=== PATIENT | male | born 1960 | race Caucasian/White ===

== ENCOUNTER 2017-01-08 10:30 | Emergency (ER) | payer OTHER ==
--- NOTE | 2017-01-08 12:40 | EDPHY ---
H & P Stated Complaint: flew in from [facility] last week n/v/d since Time Seen by Provider: 01/08/17 10:50 - Personal History Current Tetanus/Diphtheria Vaccine: Yes - Medical/Surgical History Hx Asthma: No Hx Chronic Respiratory Disease: No Hx Diabetes: No Hx Cardiac Disease: No Hx Renal Disease: No Hx Cirrhosis: No Hx Alcoholism: No Hx HIV/AIDS: No Hx Splenectomy or Spleen Trauma: No Other PMH: gout/ - Social History Smoking Status: Never smoked Constitutional: Initial Vital Signs Temperature (C) 36.5 C 01/08/17 10:37 Heart Rate 70 01/08/17 10:37 Respiratory Rate 17 01/08/17 10:37 Blood Pressure 130/79 H 01/08/17 10:37 O2 Sat (%) 96 01/08/17 10:37 O2 Delivery Mode Room Air Allergies/Adverse Reactions: No Known Allergies Allergy (Unverified 01/08/17 10:37) Home Medications: Medication Instructions Recorded Allopurinol 01/08/17 Crestor 01/08/17 Medical Decision Making ED Course/Re-evaluation: CHIEF COMPLAINT: Diarrhea HISTORY OF PRESENT ILLNESS: 56-year-old healthy gentleman presenting from [facility]. He visits here every 6-8 weeks. Upon his arrival on Monday evening from [facility] he developed diarrhea he has had severe diarrhea going every hour to since then. He denies any fevers or chills. He denies any nausea vomiting. He has been able to eat or drink but whenever he eats or drinks he goes to the bathroom within 30 minutes. He has not been on any antibiotics recently. Patient is accompanied here by his family no on else is ill REVIEW OF SYSTEMS: A 10 point review of systems was performed and is negative with the exception of the elements mentioned in the history of present illness. PHYSICAL EXAM: HR, BP, O2 Sat, RR. Temp noted General Appearance: Alert, well hydrated, appropriate, and non-toxic appearing. Head: Atraumatic without scalp tenderness or obvious injury Eyes: Pupils equal, round, reactive to light and accommodation, EOMI, no trauma , no injection. Ears: Clear bilaterally, no perforation, normal landmarks Nose: Atraumatic, no rhinorrhea, clear. Throat: There is no erythema or exudates, no lesions, normal tonsils, mucus membranes moist. Neck: Supple, 2+ carotid upstroke, nontender, no lymphadenopathy. Respiratory: No retractions, no distress, no wheezes, and no accessory muscle use. Lungs are clear to auscultation bilaterally. Cardiovascular: Regular rate and rhythm, no murmurs, rubs, or gallops. Bilateral carotid, radial, dorsalis pedis, and posterior tibial pulses intact. Good capillary refill all extremities. Gastrointestinal: Abdomen is soft, nontender, non-distended, no masses, no rebound, no guarding, no peritoneal signs. Musculoskeletal: Normal active ROM of all extremities, atraumatic. Neurological: Alert, appropriate, and interactive. The patient has normal DTRs and non-focal cranial nerves, motor, sensory, and cerebellar exam. Skin: No rashes, good turgor, no nodules on palpation. Past medical history: Patient denies Past surgical history: Patient denies Family history: Noncontributory Social history:Lives in [facility], visits here every 6-8 weeks, denies tobacco drug or alcohol abuse DIAGNOSTICS/PROCEDURES/CRITICAL CARE TIME: Awaiting GI pathogens studies including ova and parasites, Clostridium difficile , blood DIFFERENTIAL DIAGNOSIS: The differential diagnosis for the patient's diarrhea included but was not limited to gastroenteritis, gastritis, appendicitis, and medication side effect. MEDICAL DECISION MAKING: This patient seems hydrated at this point. I do not need to start IV hydration as he is able to take p. o. and has been continuously eating and drinking it is just that he has been having significant diarrhea. He does not have any abdominal pain nor does he have an abnormal abdominal exam. I am awaiting GI pathogen results. 1340: Reassessed patient and discussed results with him. Abdomen remains benign. GI results are unremarkable. He does not require any antibiotic treatment and is well-hydrated. We discussed antibiotics, but given his current symptoms I do not think these will be helpful and could worsen his diarrhea. He feels ready to go home. Return precautions given. - Data Points Laboratory Results: 01/08/17 12:46 Stool Concentration Pending Stool Occult Bld Scrn NEGATIVE (NEGATIVE) Stool Ova & Parasites YELLOW, SOFT STOOL Parasite Trichrome Pending Direct Microscop Exam NONE SEEN (NONE SEEN) Departure - Departure Disposition: Home, Routine, Self-Care Clinical Impression: Diarrhea Qualifiers: Diarrhea type: unspecified type Qualified Code(s): R19.7 - Diarrhea, unspecified Condition: Good Instructions: Acute Diarrhea (ED), Loperamide (By mouth) Additional Instructions: 1. Use Imodium as directed on the packaging as needed for diarrhea over the next few days. 2. Increase fluid intake as tolerated. 3. Follow up with your primary care provider for unimproved symptoms over the next 4-5 days. 4. Return to the ED for abdominal pain, uncontrolled vomiting, fever, or other worsening of condition. Referrals: Rama Diaz MD [Medical Doctor] - As per Instructions
[2017-01-08 12:58] VITALS: RESP 16; O2SAT 97
[2017-01-08 13:12] LABS: O/P DIRECT NONE SEEN (NONE SEEN)
[2017-01-08 13:15] LABS: OCCULT BLOOD FECES NEGATIVE (NEGATIVE)
[2017-01-08 13:53] VITALS: BP 124/68; PULSE 82; TEMP 96.8
[2017-01-08 18:17] LABS: O/P TRICHROME NONE SEEN (NONE SEEN)
[2017-01-09 14:28] LABS: O/P CONCENTRATION NONE SEEN (NONE SEEN)
== END 2017-01-08 13:53 | disposition home or self-care (01) ==
DX: R19.7 Diarrhea, unspecified (principal)